=== PATIENT | female | born 1930 | race Caucasian/White ===

== ENCOUNTER 2018-01-06 16:24 | Inpatient (IN) | payer OTHER ==
[~2018-01-06] VITALS: Ht 167.6 cm; Wt 74.0 kg
[2018-01-06 16:32] VITALS: Ht 167.6 cm; Wt 74.0 kg
[2018-01-06 17:19] LABS: RED CELL DISTRIBUTION WIDTH 17.7 % (11.5-14.5)
[2018-01-06 17:23] LABS: PLATELET COUNT 4 x10^3mcL (130-400)
[2018-01-06 17:25] LABS: CALCIUM 8.5 mg/dL (8.5-10.1); CARBON DIOXIDE 28.7 mmol/L (21-32); CHLORIDE SERUM 101 mmol/L (98-107); CREATININE SERUM 2.6 mg/dL (0.6-1.0); GLUCOSE SERUM 107 mg/dL (74-106); POTASSIUM SERUM 3.3 mmol/L (3.5-5.1); SODIUM SERUM 138 mmol/L (136-145)
[2018-01-06 17:30] LABS: ALBUMIN 2.7 g/dL (3.4-5.0); ALKALINE PHOSPHATASE 78 U/L (46-116); ALT/SGPT 7 U/L (14-59); AST/SGOT 11 U/L (15-37); BILIRUBIN TOTAL 0.26 mg/dL (0.20-1.00); CHOLESTEROL 147 mg/dL (<200); HDL CHOLESTEROL 32 mg/dL (40-60); PHOSPHOROUS 1.2 mg/dL (2.5-4.9); TOTAL PROTEIN, SERUM 6.1 g/dL (6.4-8.2); URIC ACID 1.5 mg/dL (2.6-6.0)
[2018-01-06 19:03] LABS: MONOCYTE 7 % (0-7); SEGMENTED NEUTROPHILS 78 % (37-75); rbc morphology (normal/abnorm) NORMAL (NORMAL)
[2018-01-06 19:04] LABS: PLATELET MORPHOLOGY PLT CLUMPS SEEN
[2018-01-06 21:20] VITALS: BP 115/42
[2018-01-06] MEDS ORDERED: LEVOTHYROXINE0.05 M2 PO (22:18)
[2018-01-06] MEDS ORDERED: PROCARDIA XL90 MG PO (22:19)
[2018-01-06] MEDS ORDERED: RENVELA800 M1 PO (22:20)
[2018-01-06] MEDS ORDERED: FLORASTOR1 CAP (22:20)
[2018-01-06] MEDS ORDERED: ALLOPURINOL100 MG (22:23)
[2018-01-06] MEDS ORDERED: FERROUS SULFAT325 M2 PO (22:23)
[2018-01-06] MEDS ORDERED: LIPI10 (22:24)
[2018-01-06] MEDS ORDERED: PROTONIX40 MG (22:26)
[2018-01-07 05:06] VITALS: BP 119/49
[2018-01-07 06:17] LABS: CALCIUM 8.9 mg/dL (8.5-10.1); CARBON DIOXIDE 30.9 mmol/L (21-32); CHLORIDE SERUM 103 mmol/L (98-107); CREATININE SERUM 3.6 mg/dL (0.6-1.0); GLUCOSE SERUM 90 mg/dL (74-106); MAGNESIUM 2.1 mg/dL (1.8-2.4); POTASSIUM SERUM 4.6 mmol/L (3.5-5.1); SODIUM SERUM 140 mmol/L (136-145)
[2018-01-07 07:35] LABS: RED CELL DISTRIBUTION WIDTH 18.3 % (11.5-14.5)
[2018-01-07 08:40] VITALS: BP 128/42
[2018-01-07 12:00] LABS: ATYPICAL LYMPH 5 %; BAND NEUTROPHIL 1 % (0-10); BASOPHIL 1 % (0-2); MONOCYTE 2 % (0-7); SEGMENTED NEUTROPHILS 72 % (37-75)
[2018-01-07 12:01] LABS: PLATELET MORPHOLOGY PLATELETS DECREASED; rbc morphology (normal/abnorm) ABNORMAL (NORMAL)
[2018-01-07 12:25] LABS: PLATELET COUNT 4 x10^3mcL (130-400)
[2018-01-07 12:55] VITALS: BP 119/46
[2018-01-07 13:39] LABS: rbc morphology (normal/abnorm) NORMAL (NORMAL)
[2018-01-07 14:34] LABS: PLATELET COUNT 4 x10^3mcL (130-400)
[2018-01-07 16:43] VITALS: BP 101/45
[2018-01-07 21:08] VITALS: BP 112/55
[2018-01-08 05:22] VITALS: BP 134/49
[2018-01-08 06:39] LABS: ALKALINE PHOSPHATASE 72 U/L (46-116); ALT/SGPT 15 U/L (14-59); AST/SGOT 14 U/L (15-37); BILIRUBIN DIRECT 0.16 mg/dL (0.0-0.2); BILIRUBIN TOTAL 0.51 mg/dL (0.20-1.00); CHLORIDE SERUM 101 mmol/L (98-107); GLUCOSE SERUM 143 mg/dL (74-106); SODIUM SERUM 141 mmol/L (136-145); TOTAL PROTEIN, SERUM 6.3 g/dL (6.4-8.2); URIC ACID 3.9 mg/dL (2.6-6.0)
[2018-01-08 06:45] LABS: CREATININE SERUM 4.9 mg/dL (0.6-1.0)
[2018-01-08 08:50] LABS: RED CELL DISTRIBUTION WIDTH 19.9 % (11.5-14.5)
[2018-01-08 08:55] VITALS: BP 143/55
[2018-01-08 09:22] LABS: PLATELET COUNT 18 x10^3mcL (130-400)
[2018-01-08 12:37] VITALS: BP 135/63
[2018-01-08 17:03] VITALS: BP 144/65
[2018-01-08 20:00] VITALS: BP 131/59
[2018-01-09 06:04] VITALS: BP 168/56
[2018-01-09 07:08] VITALS: BP 147/44
[2018-01-09 07:12] LABS: BASOPHIL % 0.1 % (0-2); RED BLOOD CELLS 2.24 M/mm3 (4.10-5.10)
[2018-01-09 07:49] LABS: RED CELL DISTRIBUTION WIDTH 20.2 % (11.5-14.5)
[2018-01-09 08:01] LABS: CHLORIDE SERUM 102 mmol/L (98-107); CREATININE SERUM 3.5 mg/dL (0.6-1.0); GLUCOSE SERUM 101 mg/dL (74-106); LACTIC DEHYDROGENASE (LDH) 200 U/L (100-190); POTASSIUM SERUM 4.1 mmol/L (3.5-5.1); SODIUM SERUM 141 mmol/L (136-145)
[2018-01-09 09:14] VITALS: BP 116/48
[2018-01-09 10:07] LABS: ERYTHROCYTE SED RATE 43 mm/hr (0-30)
[2018-01-09 10:22] LABS: rbc morphology (normal/abnorm) ABNORMAL (NORMAL)
[2018-01-09 10:33] LABS: PLATELET COUNT 38 x10^3mcL (130-400)
[2018-01-09 12:46] VITALS: BP 136/50
[2018-01-09 16:00] VITALS: BP 146/51
[2018-01-09 20:02] VITALS: BP 128/55
[2018-01-10 04:39] VITALS: BP 156/59
[2018-01-10 08:35] LABS: BASOPHIL % 0.1 % (0-2)
[2018-01-10 09:09] VITALS: BP 118/47
[2018-01-10 11:06] LABS: RED CELL DISTRIBUTION WIDTH 20.7 % (11.5-14.5)
[2018-01-10 11:07] LABS: PLATELET COUNT 20 x10^3mcL (130-400)
[2018-01-10 11:43] LABS: rbc morphology (normal/abnorm) ABNORMAL (NORMAL)
[2018-01-10 12:41] VITALS: BP 172/59
[2018-01-10 16:15] VITALS: BP 119/53
[2018-01-10 21:40] VITALS: BP 116/51
[2018-01-11 05:37] VITALS: BP 122/50
[2018-01-11 07:19] LABS: ALKALINE PHOSPHATASE 67 U/L (46-116); ALT/SGPT 42 U/L (14-59); AST/SGOT 30 U/L (15-37); BILIRUBIN DIRECT 0.08 mg/dL (0.0-0.2); BILIRUBIN TOTAL 0.3 mg/dL (0.20-1.00); CALCIUM 8.5 mg/dL (8.5-10.1); CARBON DIOXIDE 26.9 mmol/L (21-32); CHLORIDE SERUM 100 mmol/L (98-107); CREATININE SERUM 3.3 mg/dL (0.6-1.0); GLUCOSE SERUM 140 mg/dL (74-106); POTASSIUM SERUM 4.4 mmol/L (3.5-5.1); SODIUM SERUM 137 mmol/L (136-145)
[2018-01-11 07:21] LABS: ALBUMIN 2.9 g/dL (3.4-5.0); TOTAL PROTEIN, SERUM 6.1 g/dL (6.4-8.2)
[2018-01-11 09:52] VITALS: BP 158/53
[2018-01-11 11:05] LABS: ATYPICAL LYMPH 1 %; BAND NEUTROPHIL 0 % (0-10); BASOPHIL 0 % (0-2); MONOCYTE 6 % (0-7); SEGMENTED NEUTROPHILS 90 % (37-75)
[2018-01-11 11:07] LABS: PLATELET MORPHOLOGY PLT CLUMPS SEEN; rbc morphology (normal/abnorm) ABNORMAL (NORMAL)
[2018-01-11 11:09] LABS: PLATELET COUNT 40 x10^3mcL (130-400)
[2018-01-11 13:07] VITALS: BP 143/54
[2018-01-11] MEDS ORDERED: CARL PO (13:13)
[2018-01-11] MEDS ORDERED: PRE20 PO (13:17)
[2018-01-11 15:04] VITALS: BP 143/54
== END 2018-01-11 15:54 | disposition home or self-care (01) | DRG 813 ==
LOC: ED 16:24 → DU 20:00
PROVIDERS: Emergency Medicine; Internal Medicine; Internal Medicine Hematology; Internal Medicine Pulmonary Disease
PROC: 30233R1 Transfusion of Nonautologous Platelets into Peripheral Vein, Percutaneous Approach (ICD-10-PCS; principal; 2018-01-07)
PROC: 30233N1 Transfusion of Nonautologous Red Blood Cells into Peripheral Vein, Percutaneous Approach (ICD-10-PCS; 2018-01-09)
PROC: 07DR3ZX Extraction of Iliac Bone Marrow, Percutaneous Approach, Diagnostic (ICD-10-PCS; 2018-01-09)
PROC: 0DJ08ZZ Inspection of Upper Intestinal Tract, Via Natural or Artificial Opening Endoscopic (ICD-10-PCS; 2018-01-11)
DX: D69.6 Thrombocytopenia, unspecified (principal); N18.6 End stage renal disease; K29.61 Other gastritis with bleeding; D61.818 Other pancytopenia; I50.42 Chronic combined systolic (congestive) and diastolic (congestive) heart failure; I13.2 Hypertensive heart and chronic kidney disease with heart failure and with stage 5 chronic kidney disease, or end stage renal disease; I95.3 Hypotension of hemodialysis; K22.70 Barrett's esophagus without dysplasia; D64.89 Other specified anemias; M10.9 Gout, unspecified; I73.9 Peripheral vascular disease, unspecified; Z99.2 Dependence on renal dialysis; Z68.26 Body mass index [BMI] 26.0-26.9, adult; Z89.512 Acquired absence of left leg below knee
CPT/HCPCS: 43235; 82962; 85378; J0885-EC; J1200; J1610; J2001; J2250; J2310; J3010; J3490; J7030; J7040; J7050; J7512; J8540; P9016; P9035; Q0092

== ENCOUNTER 2018-05-28 16:23 | Emergency (ER) | payer OTHER ==
[~2018-05-28] VITALS: Ht 167.6 cm; Wt 77.1 kg
[~2018-05-28 16:23] MED LIST: ALLOPURINOL100 MG; CARL PO; FERROUS SULFAT325 M2 PO; FLORASTOR1 CAP; LEVOTHYROXINE0.05 M2 PO; LIPI10; PRE20 PO; PROCARDIA XL90 MG PO; PROTONIX40 MG; RENVELA800 M1 PO
[2018-05-28 18:25] LABS: CALCIUM 9.6 mg/dL (8.5-10.1); CARBON DIOXIDE 28.2 mmol/L (21-32); CHLORIDE SERUM 96 mmol/L (98-107); CREATININE SERUM 2.6 mg/dL (0.6-1.0); GLUCOSE SERUM 151 mg/dL (74-106); POTASSIUM SERUM 3.2 mmol/L (3.5-5.1); SODIUM SERUM 137 mmol/L (136-145)
[2018-05-28 18:29] LABS: ALKALINE PHOSPHATASE 92 U/L (46-116); ALT/SGPT 17 U/L (14-59); AST/SGOT 15 U/L (15-37); BILIRUBIN TOTAL 0.2 mg/dL (0.20-1.00); TOTAL PROTEIN, SERUM 7.1 g/dL (6.4-8.2)
[2018-05-28 18:30] LABS: ALBUMIN 3.2 g/dL (3.4-5.0)
[2018-05-28 18:30] LABS: BASOPHIL % 0.3 % (0-2)
[2018-05-28 19:17] LABS: RED CELL DISTRIBUTION WIDTH 17.9 % (11.5-14.5)
[2018-05-28 19:37] VITALS: BP 112/58
[2018-05-28 21:06] LABS: PLATELET COUNT 18 x10^3mcL (130-400)
== END 2018-05-28 19:37 | disposition home or self-care (01) ==
LOC: ED 16:23
PROVIDERS: Emergency Medicine
DX: G44.209 Tension-type headache, unspecified, not intractable (principal); R53.1 Weakness; I11.0 Hypertensive heart disease with heart failure; I50.9 Heart failure, unspecified; I12.0 Hypertensive chronic kidney disease with stage 5 chronic kidney disease or end stage renal disease; N18.6 End stage renal disease; Z99.2 Dependence on renal dialysis
CPT/HCPCS: 36415; 83880; Q0092

== ENCOUNTER 2019-07-20 19:10 | Observation (INO) | payer OTHER ==
[~2019-07-20] VITALS: Ht 165.1 cm; Wt 77.1 kg
[2019-07-20 19:16] VITALS: Ht 165.1 cm; Wt 77.1 kg
[2019-07-20 19:56] LABS: BASOPHIL % 0.3 % (0-2)
[2019-07-20 20:01] LABS: RED CELL DISTRIBUTION WIDTH 17.5 % (11.5-14.5)
[2019-07-20 20:11] LABS: CALCIUM 9.9 mg/dL (8.5-10.1); CARBON DIOXIDE 28.9 mmol/L (21-32); CHLORIDE SERUM 98 mmol/L (98-107); GLUCOSE SERUM 147 mg/dL (74-106); POTASSIUM SERUM 3.2 mmol/L (3.5-5.1); SODIUM SERUM 139 mmol/L (136-145)
[2019-07-20 20:16] LABS: ALBUMIN 3.5 g/dL (3.4-5.0); ALKALINE PHOSPHATASE 121 U/L (46-116); ALT/SGPT 10 U/L (14-59); AST/SGOT 22 U/L (15-37); BILIRUBIN TOTAL 0.2 mg/dL (0.20-1.00)
[2019-07-20 20:19] LABS: PLATELET COUNT 16 x10^3mcL (130-400)
[2019-07-21 00:34] VITALS: BP 117/62
[2019-07-21 04:45] VITALS: BP 131/55
[2019-07-21 07:24] LABS: ALKALINE PHOSPHATASE 105 U/L (46-116); ALT/SGPT 14 U/L (14-59); AST/SGOT 44 U/L (15-37); BILIRUBIN TOTAL 0.3 mg/dL (0.20-1.00); CARBON DIOXIDE 27.7 mmol/L (21-32); CHLORIDE SERUM 101 mmol/L (98-107); CREATININE SERUM 3.8 mg/dL (0.6-1.0); GLUCOSE SERUM 96 mg/dL (74-106); LIPASE 122 IU/L (73-393); MAGNESIUM 2.3 mg/dL (1.8-2.4); POTASSIUM SERUM 4.5 mmol/L (3.5-5.1); SODIUM SERUM 139 mmol/L (136-145); TOTAL PROTEIN, SERUM 6.5 g/dL (6.4-8.2)
[2019-07-21 07:26] LABS: BASOPHIL % 0.6 % (0-2)
[2019-07-21 07:27] LABS: ALBUMIN 2.9 g/dL (3.4-5.0)
[2019-07-21 07:40] LABS: RED CELL DISTRIBUTION WIDTH 17.7 % (11.5-14.5)
[2019-07-21 08:00] VITALS: BP 128/75
[2019-07-21 09:34] LABS: PLATELET COUNT 17 x10^3mcL (130-400)
[2019-07-21 12:06] VITALS: BP 126/77
[2019-07-21 17:37] VITALS: BP 130/76
[2019-07-22 06:00] VITALS: BP 142/61
[2019-07-22 06:37] LABS: ALKALINE PHOSPHATASE 90 U/L (46-116); ALT/SGPT 10 U/L (14-59); AST/SGOT 27 U/L (15-37); BILIRUBIN TOTAL 0.2 mg/dL (0.20-1.00); CARBON DIOXIDE 24.5 mmol/L (21-32); CHLORIDE SERUM 101 mmol/L (98-107); GLUCOSE SERUM 92 mg/dL (74-106); MAGNESIUM 2.4 mg/dL (1.8-2.4); POTASSIUM SERUM 4.6 mmol/L (3.5-5.1); SODIUM SERUM 138 mmol/L (136-145); TOTAL PROTEIN, SERUM 6.2 g/dL (6.4-8.2)
[2019-07-22 06:55] LABS: ALBUMIN 2.8 g/dL (3.4-5.0)
[2019-07-22 06:57] LABS: CREATININE SERUM 4.9 mg/dL (0.6-1.0)
[2019-07-22 08:27] LABS: BASOPHIL % 0.5 % (0-2)
[2019-07-22 09:01] LABS: PLATELET COUNT 27 x10^3mcL (130-400)
[2019-07-22 15:36] VITALS: BP 142/79
== END 2019-07-22 19:40 | disposition home or self-care (01) ==
LOC: ED 19:10 → MU 21:15 → DU 21:15
PROVIDERS: Emergency Medicine; Hospitalist; ADMIT Internal Medicine Pulmonary Disease
DX: R07.89 Other chest pain (principal); R06.02 Shortness of breath; I13.2 Hypertensive heart and chronic kidney disease with heart failure and with stage 5 chronic kidney disease, or end stage renal disease; N18.6 End stage renal disease; I50.9 Heart failure, unspecified; I73.9 Peripheral vascular disease, unspecified
CPT/HCPCS: 82962; 83880; 87804; G0378; J1610; J2060; J2405; J3480; J3490; J7030; Q0092